=== PATIENT | male | born 1960 | race African-American/Black ===

== ENCOUNTER → 2023-02-18 13:43 | Outpatient (CLI) | payer OTHER, SELFPAY ==
--- NOTE | 2023-02-18 13:46 | DI.MRI.S_ITS ---
PROCEDURE: MR CERVICAL SPINE WO CON INDICATIONS: CERVICAL PAIN TECHNIQUE: Noncontrast sagittal T1 spin echo and T2 fast spin echo, sagittal STIR, foraminal oblique sagittal T2 fast spin echo, and axial gradient echo or T2 fast spin echo through the cervical spine. COMPARISON: None. FINDINGS: Image quality: Excellent. Alignment and Curvature: There is normal bony alignment. Bone Marrow: Marrow demonstrates normal overall signal. Spinal Cord: Visualized spinal cord has normal size and signal. No cerebellar tonsillar herniation. Paraspinous Soft Tissues: No paravertebral masses. Prevertebral soft tissues are normal in thickness. C2-C3: Normal appearance. C3-C4: Disc space is maintained. Hypertrophic right uncovertebral joint results in moderate right foraminal stenosis. No left foraminal or central stenosis. C4-C5: Disc space narrowing and hypertrophic right uncovertebral joint. Moderate to severe right foraminal stenosis. No central or left foraminal stenosis. C5-C6: Disc space narrowing with posterior disc osteophyte complex results in moderate central stenosis with flattening the ventral surface of the cord. Moderate to severe right and mild left foraminal stenosis C6-C7: Disc space narrowing and posterior disc osteophyte complex asymmetric to the left results in moderate central stenosis with flattening the ventral surface of the cord. Hypertrophic uncovertebral joints results in moderate right and left foraminal stenosis C7-T1: Disc space narrowing and hypertrophic uncovertebral joints results in severe right and moderate left foraminal stenosis IMPRESSION: Multilevel degenerative disc disease and arthropathy results in varying degrees of central and foraminal stenosis including severe right foraminal stenosis C7-T1, moderate central stenosis C5-6 and C6-7 Approved by: Mike Shaffer M.D. on 02/19/2023 at 15:36
== END ==
PROVIDERS: Referring Provider Physical Medicine & Rehabilitation; Visit Provider Physical Medicine & Rehabilitation
DX: S16.1XXA Strain of muscle, fascia and tendon at neck level, initial encounter (principal); M50.322 Other cervical disc degeneration at C5-C6 level; M47.812 Spondylosis without myelopathy or radiculopathy, cervical region; M48.02 Spinal stenosis, cervical region; M48.03 Spinal stenosis, cervicothoracic region
CPT/HCPCS: 72141